=== PATIENT | female | born 1970 | race Caucasian/White ===

== ENCOUNTER → 2022-01-14 | Outpatient (CLI) | payer MEDICARE ==
--- NOTE | 2022-01-14 15:28 | BD ---
EXAMINATION TYPE: Axial Bone Density DATE OF EXAM: 01/14/2022 COMPARISON: NONE CLINICAL HISTORY: 51 years year old Female. ICD-10 CODE: M899 DISORDER OF BONE Height: 5' Weight: 122 FRAX RISK QUESTIONS: Glucocorticoids (More than 3mos): Y (Ex: prednisone, prednisolone, methylprednisolone, dexamethasone, and hydrocortisone). History of Fracture in Adulthood: y Secondary Osteoporosis: RISK FACTORS HISTORY OF: Surgery to Spine:lumbar scoliosis When: 2012 Family History of Osteoporosis: y If Premenopausal, do you have irregular periods: y Lost more than 2 inches in height since high school: y MEDICATIONS: Prednisone or other steroids: y How Lon ,2014 Additional Medications: novac, back , seizures Additional History: EXAM MEASUREMENTS: Bone mineral density about the R hip (g/cm2): 0.825 Bone mineral density about the L hip (g/cm2): 0.824 T Score values are as follows: -----R Neck: -1.5 -----L Neck: -1.5 -----R Total: -1.8 -----L Total: -1.4 Bone mineral density about the L Wrist (g/cm2): 0.465 T Score values are as follows: -----Dist. R+U: -2.5 -----Prox. R+U: -1.6 -----Radius total: -2.9 FRAX%s: The graph provided illustrates a 8.2 % chance for a major osteoporotic fx and a 0.9% chance f or the hips probability for fx in 10 years time. IMPRESSION: Osteoporosis (T Score less than -2.5). There is increased fracture risk and therapy is usually indicated based on age. Re-Screen 1-2 years. NOTE: T-SCORE=SD OF THE YOUNG ADULT MEAN.
[2022-01-14 18:18] LABS: Basophils # (A) 0.05 X 10*3/uL (0.00-0.10); Basophils % (A) 0.9 %; Eosinophils # (A) 0.15 X 10*3/uL (0.04-0.35); Eosinophils % (A) 2.6 %; HCT 43.4 % (37.2-46.3); HGB 14.3 g/dL (12.0-15.0); Immature Grans, Automated 0.2 %; Lymphocytes # (A) 2.45 X 10*3/uL (0.90-5.00); MCH 32.4 pg (27.0-32.0); MCHC 32.9 g/dL (32.0-37.0); MCV 98.4 fL (80.0-97.0); Mean Platelet Volume 9.2 fL (9.5-12.2); Monocytes # (A) 0.36 X 10*3/uL (0.20-1.00); Monocytes % (A) 6.3 %; NRBC Per 100 WBC 0 /100 WBCS (0.0-0.0); Neutrophils # (A) 2.68 X 10*3/uL (1.80-7.70); Platelet Count 357 X 10*3/uL (140-440); RBC 4.41 X 10*6/uL (4.10-5.20); RDW 12.6 % (11.5-14.5)
[2022-01-14 18:41] LABS: ALT 30 U/L (8-44); AST 25 U/L (13-35); African American GFR (CKD) 118.5 (60.0-200.0); Albumin 4.5 g/dL (3.8-4.9); Albumin/Globulin Ratio 3.06 (1.60-3.17); Alkaline Phosphatase 41 U/L (41-126); BUN/Creat Ratio 12.84 Ratio (12.00-20.00); Blood Urea Nitrogen 8.9 mg/dL (9.0-27.0); Calcium 9.9 mg/dL (8.7-10.3); Carbon Dioxide 25.5 mmol/L (20.0-27.5); Chloride 105 mmol/L (96-109); Chol/HDL Ratio 4.18 Ratio; Globulin 1.5 g/dL (1.6-3.3); Glucose 89 mg/dL (70-110); LDL Cholesterol,Calculated 214.9 mg/dL (0.0-131.0); Non-African American GFR(CKD) 102.3 (60.0-200.0); Potassium 5.3 mmol/L (3.5-5.5); Sodium 141 mmol/L (135-145)
--- NOTE | 2022-01-15 08:50 | MM ---
Reason for Exam: Screening (asymptomatic). Baseline mammogram. Patient History: Menarche at age 14. First Full-Term at age 25. Last menstrual period: Risk Values: Elza 5 year model risk: 0.8%. NCI Lifetime model risk: 8.2%. Prior Study Comparison: Patient's first Mammogram. Tissue Density: The breast tissue is heterogeneously dense. This may lower the sensitivity of mammography. Findings: Analyzed By CAD. There is no suspicious group of microcalcifications. Focal asymmetry demonstrated within the inner lower right breast with additional additional high density focal asymmetry of within the upper outer right breast. Overall Assessment: Incomplete: need additional imaging evaluation, BI-RAD 0 Management: Diagnostic Mammogram of the right breast. A clinical breast exam by your physician is recommended on an annual basis and results should be correlated with mammographic findings. [facility] will attempt to contact patient to return for supplemental views and ultrasound if indicated. Electronically signed and approved by: Matt Christianson D.O.
== END | disposition home or self-care (01) ==
LOC: RADMAMWWP 12:52
PROVIDERS: ATTEND Family Medicine
DX: Z12.31 Encounter for screening mammogram for malignant neoplasm of breast (principal); M81.0 Age-related osteoporosis without current pathological fracture; R56.9 Unspecified convulsions; Z81.0 Family history of intellectual disabilities
CPT/HCPCS: 77067; 77080; 80053; 80061; 80175; 82306; 82607; 84443; 85025

== ENCOUNTER → 2022-04-01 | Outpatient (CLI) | payer MEDICARE ==
[2022-04-01 19:13] LABS: African American GFR (CKD) 117.9 (60.0-200.0); Albumin 4.7 g/dL (3.8-4.9); Albumin/Globulin Ratio 2.76 (1.60-3.17); Anion Gap 9.7 mmol/L (10.00-18.00); BUN/Creat Ratio 15.86 Ratio (12.00-20.00); Blood Urea Nitrogen 11.1 mg/dL (9.0-27.0); Calcium 10.2 mg/dL (8.7-10.3); Carbon Dioxide 27.3 mmol/L (20.0-27.5); Globulin 1.7 g/dL (1.6-3.3); Non-African American GFR(CKD) 101.7 (60.0-200.0); Potassium 6.1 mmol/L (3.5-5.5); Total Bilirubin 0.3 mg/dL (0.30-1.20); Total Protein 6.4 g/dL (6.2-8.2)
== END | disposition home or self-care (01) ==
LOC: LABWHC1 11:20
PROVIDERS: ATTEND Physician Assistant
DX: M81.8 Other osteoporosis without current pathological fracture (principal); T38.0X5A Adverse effect of glucocorticoids and synthetic analogues, initial encounter
CPT/HCPCS: 36415; 80053; 82306; 83970

== ENCOUNTER → 2022-04-15 | Outpatient (CLI) | payer MEDICARE ==
[2022-04-15 14:31] LABS: African American GFR (CKD) 124.6 (60.0-200.0); Anion Gap 9.3 mmol/L (10.00-18.00); BUN/Creat Ratio 14.22 Ratio (12.00-20.00); Blood Urea Nitrogen 8.4 mg/dL (9.0-27.0); Calcium 9.7 mg/dL (8.7-10.3); Carbon Dioxide 27.8 mmol/L (20.0-27.5); Non-African American GFR(CKD) 107.5 (60.0-200.0); Potassium 4.9 mmol/L (3.5-5.5)
== END | disposition home or self-care (01) ==
LOC: LABWHC1 09:25
PROVIDERS: ATTEND Family Medicine
DX: E87.5 Hyperkalemia (principal)
CPT/HCPCS: 36415; 80048

== ENCOUNTER → 2022-08-13 | Outpatient (CLI) | payer MEDICARE ==
--- NOTE | 2022-08-13 13:39 | MM ---
Reason for Exam: Follow-up at short interval from prior study. Last screening mammogram was performed 7 month(s) ago. Patient History: Menarche at age 14. First Full-Term at age 25. Risk Values: Elza 5 year model risk: 0.9%. NCI Lifetime model risk: 8.0%. Prior Study Comparison: 01/14/2022 Bilateral MG screening mammo w CAD, [facility]. 01/21/2022 Right MG work up mamm w CAD RT, [facility]. Tissue Density: Right: The breast tissue is heterogeneously dense. This may lower the sensitivity of mammography. Findings: Analyzed By CAD. Focal asymmetry at approximately 3:00 position right breast at a middle depth incompletely disperses on additional views. Further ultrasound evaluation recommended. Overall Assessment: Incomplete: need additional imaging evaluation, BI-RAD 0 Management: Diagnostic Breast Ultrasound of the right breast. 3:00 position. Electronically signed and approved by: Yoselin Brewer M.D. Radiologist
--- NOTE | 2022-08-13 14:39 | USB ---
Reason for Exam: Additional evaluation requested from abnormal screening. Patient History: Menarche at age 14. First Full-Term at age 25. Risk Values: Elza 5 year model risk: 0.9%. NCI Lifetime model risk: 8.0%. Technique: Method: Targeted. Prior Study Comparison: 01/14/2022 Bilateral MG screening mammo w CAD, [facility]. 01/21/2022 Right MG work up mamm w CAD RT, [facility]. Findings: The medial section of the breast of the right breast, the axilla of the right breast and the retroareolar of the right breast were scanned. Targeted ultrasound right breast shows a roughly 3 x 4 x 6 mm hypoechoic to anechoic oval area from o'clock position 5 cm distance from nipple could reflect thin-walled cyst with septation. Overall Assessment: Probably benign, BI-RAD 3 Management: Diagnostic Mammogram of the right breast in 6 months. Diagnostic Breast Ultrasound of the right breast in 6 months. Precautionary short-term follow-up. Results were given to the patient verbally at the time of exam. Electronically signed and approved by: Alejandro Lucio M.D.
== END | disposition home or self-care (01) ==
LOC: RADMAMWWP 12:58
PROVIDERS: ATTEND Family Medicine
DX: R92.8 Other abnormal and inconclusive findings on diagnostic imaging of breast (principal)
CPT/HCPCS: 77065

== ENCOUNTER → 2022-08-25 | Outpatient (CLI) | payer MEDICARE ==
[~2022-08-25] MED LIST: SODIUM CHLORIDE 0.9% 500 ML 500 ML in EMPTY BAG 1 BAG IV PRN; ZOLEDRONIC ACID 5 MG in SODIUM CHLORIDE 0.9% 100 ML IV NR
[2022-08-25 14:17] VITALS: BP 123/75; PULSE 88; RESP 15; TEMP 98.3
== END ==
LOC: PROCWHC3 13:53
PROVIDERS: ATTEND Family Medicine
DX: M81.0 Age-related osteoporosis without current pathological fracture (principal); Z88.8 Allergy status to other drugs, medicaments and biological substances; Z88.5 Allergy status to narcotic agent
CPT/HCPCS: 96365; J3489

== ENCOUNTER 2023-02-03 07:35 | Day surgery (SDC) | payer MEDICARE ==
[2023-01-28 14:10] VITALS: BMI 24.6
[~2023-02-03 07:35] MED LIST changes: +LACTATED RINGERS 1,000 ML IV SCH; +LIDOCAINE 1% (10MG/ML) FOR IV START INTRADERMA PRN; -SODIUM CHLORIDE 0.9% 500 ML 500 ML in EMPTY BAG 1 BAG IV PRN; -ZOLEDRONIC ACID 5 MG in SODIUM CHLORIDE 0.9% 100 ML IV NR
[2023-02-03 08:16] VITALS: RESP 16; TEMP 98
[2023-02-03] MEDS ORDERED: LIDOCAINE 2% INJ 20 MG/ML (2 ML VIAL) ONE (08:44)
[2023-02-03] MEDS ORDERED: PROPOFOL 10 MG/ML 20 ML VIAL IV ONE (08:44)
--- NOTE | 2023-02-03 08:47 | P.GSHP ---
History of Present Illness H&P Date: 02/03/23 Chief Complaint: Colon cancer screening 52-year-old female here for colonoscopy. She has not had 1 previously. No bowel complaints. No family history of colon cancer. Past Medical History Past Medical History: Hyperlipidemia, Seizure Disorder Additional Past Medical History / Comment(s): SEASONAL ALLERGIES. EPILEPSY-LAST SEIZURE 2012. SCOLIOSIS-DISABLED History of Any Multi-Drug Resistant Organisms: None Reported Past Surgical History: Back Surgery, Cholecystectomy, Tonsillectomy Additional Past Surgical History / Comment(s): SPINAL FUSIONS X 5, Past Anesthesia/Blood Transfusion Reactions: No Reported Reaction Smoking Status: Never smoker - Past Family History Mother Family Medical History: No Reported History Medications and Allergies Home Medications Medication Instructions Recorded Confirmed Type Atorvastatin [Lipitor] 20 mg PO DAILY 08/25/22 01/28/23 History Calcium Citrate 600 mg PO BID 08/25/22 01/28/23 History Cholecalciferol (Vitamin D3) 125 mcg PO DAILY 08/25/22 01/28/23 History [Vitamin D3 (125 MCG = 5,000 IU)] Loratadine [Claritin] 10 mg PO DAILY 08/25/22 01/28/23 History Meloxicam [Mobic] 15 mg PO DAILY 08/25/22 01/28/23 History Vit B Complx C/Folic Acid/Zinc 1 tab PO DAILY 08/25/22 01/28/23 History [Renaplex Tablet] lamoTRIgine [LaMICtal] 200 mg PO DAILY 08/25/22 01/28/23 History estradioL 0.5 mg PO DAILY 01/28/23 01/28/23 History medroxyPROGESTERone [Provera] 2.5 mg PO DAILY 01/28/23 01/28/23 History Allergies Allergy/AdvReac Type Severity Reaction Status Date / Time Opioids - Morphine Analogues Allergy Rash/Hives Verified 02/03/23 08:01 Opioids-Meperidine and Allergy Rash/Hives Verified 02/03/23 08:01 Related phenytoin [From Dilantin] Allergy PERIPHERAL Verified 02/03/23 08:01 NEUROPATHY prochlorperazine Allergy AKATHISIA Verified 02/03/23 08:01 [From Compazine] zonisamide [From Zonegran] Allergy RHABDOMYOLY Verified 02/03/23 08:01 [facility] - Exam Vital Signs Temp Pulse Resp BP Pulse Ox 98 F 97 16 136/77 98 02/03/23 08:15 02/03/23 08:15 02/03/23 08:15 02/03/23 08:15 02/03/23 08:15 Physical exam: General: Well-developed, well-nourished HEENT: Normocephalic, sclerae nonicteric Abdomen: Nontender, nondistended Extremities: No edema Neuro: Alert and oriented Assessment and Plan (1) Colon cancer screening Narrative/Plan: Will proceed with colonoscopy at this time. Current Visit: Yes Status: Acute Code(s): Z12.11 - ENCOUNTER FOR SCREENING FOR MALIGNANT NEOPLASM OF COLON SNOMED Code(s): 106869825
--- NOTE | 2023-02-03 08:57 | P.PCN ---
Date of Procedure: 02/03/23 Procedure(s) Performed: PREOPERATIVE DIAGNOSIS: Colon cancer screening POSTOPERATIVE DIAGNOSIS: Normal exam PROCEDURE: Colonoscopy ANESTHESIA: MAC SURGEON: Anish Gonzalez M.D. SPECIMENS: None ENDOSCOPIC PROCEDURE: The patient was placed on the endoscopy table in the left decubitus position. The Olympus colonoscope was inserted into the anus and passed under direct visualization to the base of the cecum. The appendiceal orifice was visualized. From that point the scope was slowly withdrawn inspecti ng all surfaces carefully. There were no neoplastic inflammatory or polypoid lesions throughout the cecum, ascending, transverse, descending, sigmoid and rectum. There was no diverticulosis noted. Digital rectal examination was normal. The patient was taken to the recovery room in stable condition per anesthesia guidelines. RECOMMENDATIONS: Resume diet. Repeat colonoscopy 10 years.
[2023-02-03 09:48] VITALS: BP 112/70; PULSE 90
== END 2023-02-03 09:50 | disposition home or self-care (01) ==
LOC: ORWHC2ENDO 07:35
PROVIDERS: ATTEND Surgery
DX: Z12.11 Encounter for screening for malignant neoplasm of colon (principal); G40.909 Epilepsy, unspecified, not intractable, without status epilepticus; E78.5 Hyperlipidemia, unspecified; Z79.1 Long term (current) use of non-steroidal anti-inflammatories (NSAID); Z79.3 Long term (current) use of hormonal contraceptives; Z88.5 Allergy status to narcotic agent; Z88.2 Allergy status to sulfonamides; Z88.8 Allergy status to other drugs, medicaments and biological substances; Z90.49 Acquired absence of other specified parts of digestive tract; Z98.890 Other specified postprocedural states; Z79.899 Other long term (current) drug therapy
CPT/HCPCS: 84703; 45378; J2704; J2001

== ENCOUNTER → 2023-11-05 | Outpatient (CLI) | payer MEDICARE ==
--- NOTE | 2023-11-05 08:37 | MM ---
Reason for Exam: Follow-up at short interval from prior study. Last mammogram was performed 1 year(s) and 10 month(s) ago. Patient History: Menarche at age 14. First Full-Term at age 25. Risk Values: Elza 5 year model risk: 0.9%. NCI Lifetime model risk: 7.9%. Prior Study Comparison: 01/14/2022 Bilateral MG screening mammo w CAD, [facility]. 01/21/2022 Right US breast workup limited RT, [facility]. 01/21/2022 Right MG work up mamm w CAD RT, [facility]. 08/13/2022 Right US breast limited RT, [facility]. 08/13/2022 Right MG diagnostic mammo RT w CAD, [facility]. Tissue Density: The breasts are heterogeneously dense, which may obscure small masses. Findings: Analyzed By CAD. On the MLO view, new subareolar asymmetric density does not persist. Other areas of asymmetric density on the right remain unchanged. On the left, asymmetric density far posterior superior MLO view becomes less defined and has the appearance of superimposed breast tissue on 3-D images. Precautionary 6 month follow-up recommended. Overall Assessment: Incomplete: need additional imaging evaluation, BI-RAD 0 Management: Diagnostic Breast Ultrasound of the right breast. As previously recommended. Electronically signed and approved by: Yoselin Brewer M.D. Radiologist
--- NOTE | 2023-11-05 08:59 | USB ---
Reason for Exam: Follow-up at short interval from prior study. Patient History: Menarche at age 14. First Full-Term at age 25. Risk Values: Elza 5 year model risk: 0.9%. NCI Lifetime model risk: 7.9%. Technique: Method: Targeted. Prior Study Comparison: 01/14/2022 Bilateral MG screening mammo w CAD, [facility]. 01/21/2022 Right MG work up mamm w CAD RT, [facility]. 08/13/2022 Right MG diagnostic mammo RT w CAD, [facility]. Findings: The lower outer quadrant of the right breast, the axilla of the right breast and the retroareolar of the right breast were scanned. Targeted ultrasound 7:00 position right breast including scanning of the subareolar region and axilla. There is a stable cyst cluster measuring 7 x 5 x 3 mm 7:00 position, 2 cm from the nipple. Previously 8 x 6 x 3 mm. This suggests a benign etiology. Overall Assessment: Probably benign, BI-RAD 3 Management: Diagnostic Mammogram of the left breast in 6 months. A clinical breast exam by your physician is recommended on an annual basis and results should be correlated with mammographic findings. This exam should not preclude additional follow-up of suspicious palpable abnormalities. Results were given to the patient verbally at the time of exam. Electronically signed and approved by: Yoselin Brewer M.D. Radiologist
--- NOTE | 2023-11-05 20:07 | BD ---
EXAMINATION TYPE: Axial Bone Density DATE OF EXAM: 11/05/2023 CLINICAL HISTORY: 53 years old Female. ICD-10 CODE: M81.0 OSTEOPOROSIS Height: 60 in Weight: 126 lbs FRAX RISK QUESTIONS: History of Fracture in Adulthood: lt foot age 45 RISK FACTORS HISTORY OF: Surgery to Spine: 6 spinal fusions MEDICATIONS: Osteoporosis Medications: yes Which medication: reclast How Lon year EXAM MEASUREMENTS: Bone mineral densitometry was performed using the [employer] System. 6 spinal fusions Bone mineral density about the R hip (g/cm2): 0.781 Bone mineral density about the L hip (g/cm2): 0.846 T Score values are as follows: -----R Neck: -1.6 -----L Neck: -1.5 -----R Total: -1.8 -----L Total: -1.3 Z Score values are as follows: -----R Neck: -0.6 -----L Neck: -0.5 -----R Total: -1.1 -----L Total: -0.6 Bone mineral density has: Increased 0.7% since study of: 01/14/2022 Bone mineral density about the L Wrist (g/cm2): 0.477 T Score values are as follows: -----Dist. R+U: -2.1 -----Prox. R+U: -2.4 -----Radius total: -3.3 Z Score values are as follows: -----Dist. R+U: -1.9 -----Prox. R+U: -2.3 -----Radius total: -3.2 Bone mineral density has: Decreased -9.5% since study of: 01/14/2022 FRAX%s: The graph provided illustrates a 9.9% chance for a major osteoporotic fx and a 1.1% chance fo r the hips probability for fx in 10 years time. IMPRESSION: Osteopenia (T Score between -2.5 and -1). However, note that measurements are bordering on osteoporos is at the left wrist. There is slightly increased risk of fracture and the patient may be considered for treatment. Re-Screen 2-5 years. NOTE: T-SCORE=SD OF THE YOUNG ADULT MEAN.
== END | disposition home or self-care (01) ==
LOC: RADMAMWWP 07:49
PROVIDERS: ATTEND Family Medicine
DX: M85.89 Other specified disorders of bone density and structure, multiple sites (principal); N60.01 Solitary cyst of right breast; M81.0 Age-related osteoporosis without current pathological fracture; R92.333 Mammographic heterogeneous density, bilateral breasts
CPT/HCPCS: 77080; 77066; 76642; G0279; 77062

== ENCOUNTER → 2024-08-11 | Outpatient (CLI) | payer MEDICARE ==
--- NOTE | 2024-08-11 12:25 | USB ---
Reason for Exam: Additional evaluation requested from prior study. Patient History: Menarche at age 14. First Full-Term at age 25. Risk Values: Elza 5 year model risk: 0.9%. NCI Lifetime model risk: 7.8%. Technique: Method: Targeted. Prior Study Comparison: 01/21/2022 Right MG work up mamm w CAD RT, [facility]. 08/13/2022 Right MG diagnostic mammo RT w CAD, [facility]. 11/05/2023 Bilateral MG 3D diag mammo w/cad [facility], [facility]. Findings: The upper inner quadrant of the left breast, the axilla of the left breast and the retroareolar of the left breast were scanned. No solid or cystic masses are identified. Precautionary six-month follow-up left breast.. Overall Assessment: Probably benign, BI-RAD 3 Management: Diagnostic Mammogram of both breasts in 6 months. A clinical breast exam by your physician is recommended on an annual basis and results should be correlated with mammographic findings. This exam should not preclude additional follow-up of suspicious palpable abnormalities. Results were given to the patient verbally at the time of exam. [facility], , 08/11/2024 12:22 PM. Electronically signed and approved by: Bryce Martinez M.D. Radiologis
--- NOTE | 2024-08-11 12:29 | MM ---
Reason for Exam: Follow-up at short interval from prior study. Last screening mammogram was performed 9 month(s) ago. Patient History: Menarche at age 14. First Full-Term at age 25. Risk Values: Elza 5 year model risk: 0.9%. NCI Lifetime model risk: 7.8%. Prior Study Comparison: 01/21/2022 Right MG work up mamm w CAD RT, [facility]. 08/13/2022 Right MG diagnostic mammo RT w CAD, [facility]. 11/05/2023 Bilateral MG 3D diag mammo w/cad [facility], [facility]. Tissue Density: Left: The breasts are heterogeneously dense, which may obscure small masses. Findings: Analyzed By CAD. Nodular density upper inner left breast far posteriorly measuring 6 mm 11.5 cm from the nipple. Ultrasound is recommended. Overall Assessment: Incomplete: need additional imaging evaluation, BI-RAD 0 Management: Diagnostic Breast Ultrasound of the left breast. . Results were given to the patient verbally at the time of exam. Patient should continue monthly self-breast exams. A clinical breast exam by your physician is recommended on an annual basis. This exam should not preclude additional follow-up of suspicious palpable abnormalities. Note on Elza scores and lifetime risk: 1. A Elza score greater than 3% is considered moderate risk. If this is the case, consider specialist referral to assess eligibility for a risk reducing agent. 2. If overall lifetime risk for the development of breast cancer is 20% or higher, the patient may qualify for future screening with alternating mammogram and breast MRI. [facility], , 08/11/2024 12:26 PM. Electronically signed and approved by: Bryce Martinez M.D. Radiologis
== END | disposition home or self-care (01) ==
LOC: RADMAMWWP 11:19
PROVIDERS: ATTEND Family Medicine
DX: R92.8 Other abnormal and inconclusive findings on diagnostic imaging of breast (principal); R92.332 Mammographic heterogeneous density, left breast
CPT/HCPCS: 77065; 76642; G0279; 77061